=== PATIENT | male | born 1995 | race Caucasian/White ===

== ENCOUNTER 2017-06-23 08:51 | Emergency (ER) | payer BC ==
[~2017-06-23] VITALS: Ht 180.3 cm; Wt 96.0 kg
[~2017-06-23 08:51] MED LIST: ALLEGRA-D12 HOUR OR; ALLERGY1 TAB OR; AMOXICILLIN500 MG PO; AMOXICILLIN875 MG PO; AUGMENTIN875 MG OR; AUGMENTIN875TAB PO; BENZONATATE200 MG OR; FLUZONE SPLT1 M1 IM; NO HOME MEDS; NO MEDS; PEPTO BISMOL30 ML OR; PRELONE 15MG/5ML5 ML PO; TAM75CAP OR; TAM75CAP PO; TESSALON PER100 MG PO; VENTOLIN HFA IN; ZOFRAN ODT4 MG PO; ZPAK PO
[2017-06-23] MEDS ORDERED: NAPROSYN500 MG PO ×2 (09:33→09:43)
[2017-06-23 09:45] VITALS: BP 120/60
== END 2017-06-23 10:03 | disposition home or self-care (01) | DRG 563 ==
LOC: ED 08:51
DX: S83.91XA Sprain of unspecified site of right knee, initial encounter (principal); F17.220 Nicotine dependence, chewing tobacco, uncomplicated; S93.401A Sprain of unspecified ligament of right ankle, initial encounter; W55.12XA Struck by horse, initial encounter; Y93.89 Activity, other specified; Y92.89 Other specified places as the place of occurrence of the external cause